=== PATIENT | male | born 1950 | race Caucasian/White ===

== ENCOUNTER 2022-05-23 11:00 | Outpatient (CLI) | payer MEDICARE, SELFPAY ==
--- NOTE | 2022-05-23 11:37 | XR_ITS ---
WS: [id number] Right arm and humerus, 2 views, AP and lateral views, 05/23/2022 Clinical Data: PAIN IN RIGHT UPPER ARM Comparison: None. Findings: No fractures or dislocations are seen. The shaft of the humerus is intact. XR/[place] [id number] Impression: Negative right arm and humerus.
== END 2022-05-23 11:01 | disposition home or self-care (01) ==
PROVIDERS: PCP Nurse Practitioner Family; Visit Provider Nurse Practitioner Family
DX: M79.621 Pain in right upper arm (principal)
CPT/HCPCS: 73060

== ENCOUNTER 2022-05-26 07:50 | Outpatient (CLI) | payer MEDICARE, SELFPAY ==
--- NOTE | 2022-05-26 08:03 | XR_ITS ---
WS: [id number] XR shoulder RT min 2V* [id number] REASON FOR EXAM: PAIN IN R UPPER ARM FINDINGS: No fracture or focal bone lesion. Moderate narrowing of the joint space with subchondral sclerosis and mild osteophytosis of the acromi oclavicular joint. Mild narrowing of the glenohumeral joint with moderate to significant subchondral sclerosis and osteo phytosis of the glenoid. Moderate subchondral sclerosis and cystic change in the biceps tuberosity. 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 Moderate rotator cuff tendon arthropathy.
== END 2022-05-26 07:51 | disposition home or self-care (01) ==
LOC: RAD 07:54
PROVIDERS: PCP Nurse Practitioner Family; Visit Provider Nurse Practitioner Family
DX: M19.011 Primary osteoarthritis, right shoulder
CPT/HCPCS: 73030

== ENCOUNTER 2024-03-11 18:22 | Emergency (ER) | payer MEDICARE, SELFPAY ==
[2024-03-11 18:36] VITALS: BP 160/89; PULSE 84; RESP 18; TEMP 36.6; O2SAT 92; BMI 25.0
--- NOTE | 2024-03-11 21:00 | W.ED.SKABFB ---
HPI - Skin/Abscess/Foreign Bdy General: Chief complaint: Skin/Abscess/Foreign Body Stated complaint: right ear pain Time Seen by Provider: 03/11/24 20:45 Source: patient Mode of arrival: ambulatory Limitations: no limitations History of Present Illness: 73-year-old male states that over the last 3 days has had some pain noted to the right side of his head and ear states he has had a rash there now for 3 days his physician thought maybe staph he has been taking antibiotics but states that it is worsening. States pain sharp in nature is much worse with palpation. Associated symptoms: Deny chills, fever(s), nausea or vomiting Related Data Previous Rx's Medication Instructions Recorded amoxicillin 500 mg tablet 500 mg PO BID #20 tabs 01/22/23 hydrocodone 5 mg-acetaminophen 325 1 tab PO Q6H PRN pain #14 tabs 03/11/24 mg tablet valacyclovir 1 gram tablet 1,000 mg PO Q8H 7 days #21 tabs 03/11/24 (Valtrex) Allergies Allergy/AdvReac Type Severity Reaction Status Date / Time meperidine [From Demerol] Allergy Severe ADR-Confusi Verified 01/22/23 12:23 on Review of Systems Const: Denies: fever(s), chills, body aches or change in appetite ENMT: Denies: throat pain or dental pain Card: Denies: chest pain Resp: Denies: dyspnea GI: Denies: abdominal pain, nausea, vomiting or diarrhea Musc: Denies: neck pain or back pain Skin/Breast: Reports: rash and skin pain Physical Exam Const: COMMON NORMALS: no acute distress, patient oriented x3 and healthy appearing HENMT: COMMON NORMALS: normocephalic and atraumatic HEAD & SCALP: normocephalic and atraumatic Eye: COMMON NORMALS: conjunctivae normal CONJUNCTIVA: Yes conjunctivae normal Neck/C-Spine: COMMON NORMALS: full ROM and supple Chest: COMMONS NORMALS: normal inspection of the chest Resp: COMMON NORMALS: normal respiratory effort Cardio: COMMON NORMALS: regular rate RATE: regular rate Extremity: COMMON NORMALS: normal to inspection and full ROM Neuro: COMMON NORMALS: patient oriented x3, moves all extremities and no focal motor deficits Psych: COMMON NORMALS: mental status grossly normal, Normal thought process present and cooperative THOUGHT PROCESS: Normal thought process present Skin: COMMON NORMALS: no wounds NARRATIVE SKIN EXAM: Rash noted to anterior posterior and to posterior scalp consistent with shingles Course Vital Signs: Vital signs: Vital Signs Temperature 97.9 F 03/11/24 18:36 Pulse Rate 84 03/11/24 18:36 Respiratory Rate 18 03/11/24 18:36 Blood Pressure 160/89 03/11/24 18:36 Pulse Oximetry 92 03/11/24 18:36 Oxygen Delivery Me thod Room Air 03/11/24 18:36 MDM - Skin/Abscess/Foreign Bdy Medicial Decision Making Patient presents here with shingles we will start on valacyclovir patient stable for discharge return if worsening. Medical Records I reviewed the patient's medical records. No radiology studies performed this visit Discharge Plan Discharge Patient Disposition: Home Clinical Impression: Shingles Condition: Stable Prescriptions: New hydrocodone-acetaminophen 5-325 mg tablet 1 tab PO Q6H PRN (Reason: pain) Qty: 14 0RF valacyclovir [Valtrex] 1 gram tablet 1,000 mg PO Q8H 7 Days Qty: 21 0RF No Action amoxicillin 500 mg tablet 500 mg PO BID Qty: 20 0RF Discharge Orders: Discharge ED (Routine); Ordered 03/11/24 Ordered By: Adam Hobbs Referrals: Karissa Humphries FNP [Primary Care Provider] - 4-7 days Discharge Diet: Advance as tolerated Discharge Activity: Resume usual activity Patient Instructions: Shingles (ED), Opioid Safety Coding Level of Care Code ED [employer] for Manuelito Davies
[2024-03-11 21:11] VITALS: BP 154/86; PULSE 81; RESP 16; O2SAT 94
== END 2024-03-11 21:11 | disposition home or self-care (01) ==
PROVIDERS: Emergency Provider Emergency Medicine; PCP Nurse Practitioner Family
DX: B02.9 Zoster without complications (principal)
CPT/HCPCS: 99283

== ENCOUNTER 2025-01-15 21:31 | Emergency (ER) | payer MEDICARE, SELFPAY ==
[2025-01-15 21:43] VITALS: BP 121/64; PULSE 71; RESP 14; TEMP 36.3; O2SAT 97; BMI 25.5
--- OUTSIDE RECORDS SUMMARY | 2025-01-15 21:44 | XMS_ITS | Encounter Summary ---
Author Organization [facility] Address [address] [place] [address] Care Team Providers Care Mail Distribution Clerk Name Role Phone Anthony Wang MD Primary Care Provider Encounter Details Date Type Department Care Team (Latest Contact Info) Description 05/19/2005 Outpatient Historical [facility] 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
--- OUTSIDE RECORDS SUMMARY | 2025-01-15 21:44 | XMS_ITS | Clinical Summary ---
Author Organization [facility] Address [address] [place] [address] Care Team Providers Care Optometry Teacher Name Role Phone Anthony Wang MD Primary Care Provider Allergies Active Allergy Reactions Criticality Noted Date Comments Meperidine Nausea and Vomiting High 12/21/2012 dizziness Medications naproxen (NAPROSYN) 500 mg tablet Take 500 mg by mouth 2 times daily. 05/23/2022 Active Hospital, Clinic, or Other Facility Administered Medication Ordered Dose Route Frequency Start Date End Date Status lidocaine (XYLOCAINE) 4 % (40 mg/mL) mucosal solution 0.2 mLIndications:Exudative age-related macular degeneration of left eye with active choroidal neovascularization (CMS/HCC) 0.2 mL See Instruct ONE TIME ONLY 5 Active povidone-iodine in balanced salt solution 0.25% eye drop 7 DropIndications:Exudati ve age-related macular degeneration of left eye with active choroidal neovascularization (CMS/HCC) 7 Drop Left Eye ONE TIME ONLY 5 Active sod borate-boric xx-TfYu-szdwg (COLLYRIUM) opthalmic solution 40 DropIndications:Exudati ve age-related macular degeneration of left eye with active choroidal neovascularization (CMS/HCC) 40 Drop See Instruct ONE TIME ONLY 5 Active tetracaine (AK-T-ODALIS) 0.5 % ophthalmic solution 5 DropIndications:Exudati ve age-related macular degeneration of left eye with active choroidal neovascularization (CMS/HCC) 5 Drop Left Eye ONE TIME ONLY 5 Active proparacaine (OPTHAINE) 0.5 % ophthalmic solution 6 DropIndications:Exudati ve age-related macular degeneration of left eye with active choroidal neovascularization (CMS/HCC) 6 Drop Left Eye ONE TIME ONLY 5 Active Active Problems Problem Noted Date Diagnosed Date Rotator cuff tear 01/03/2013 Encounters Date Type Department Care Team Description 01/10/2025 External Device Data STL ABSTRACTION Provider, Abstract 01/03/2025 Telephone [facility] Op[facility] [place] [address] [address] Nadira Metcalf MD Referral Request 12/26/2024 Abstract [facility] Ophthal[facility] [place] [address] [address] Nadira Metcalf MD from Last 3 Months Family History Relation Name Status Comments Father Mother Social History Tobacco Use Types Packs/Day Years Used Date Smoking Tobacco: Former Cigarettes Q uit: 2020 Smokeless Tobacco: Never Tobacco Cessation:Counseling Given: Not Answered Alcohol Use Standard Drinks/Week Comments Yes 0 (1 standard drink = 0.6 oz pur e alcohol) Sex and Gender Information Value Date Recorded Sex Assigned at Not on file Legal Sex Male 1:36 AM CAT BREEDER Gender Identity Not on file Sexual Orientation Not on file Last Filed Vital Signs Vital Sign Reading Time Taken Comments Blood Pressure 128/66 06/18/2022 10:34 AM CDT Pulse - - Temperature - - Respiratory Rate - - Oxygen Saturation - - Inhaled Oxygen Concentration - - Weight 80.7 kg (178 lb) 06/18/2022 10:34 AM CDT Height 172.7 cm (5' 8 ) 06/18/2022 10:34 AM CDT Body Mass Index 27.06 06/18/2022 10:34 AM CDT Plan of Treatment Upcoming Encounters Date Type Department Care Team (Late st Contact Info) Description 01/17/2025 7:50 AM CAT BREEDER Office Visit [facility] [place] [address] [address] Nadira Metcalf MD [address] [place] [address] 01/17/2025 9:00 AM CAT BREEDER Procedure visit [facility] Ophthal[facility] [place] [address] [address] Nadira Metcalf MD [address] [place] [address] Health Maintenance Due Date Last Done Comments DTAP/TDAP/TD VACCINES (1 - Tdap) 11/04/1970 COLORECTAL SCREENING 11/04/1996 Colorectal Cancer Screening 11/04/1996 FIT-DNA Q 3 years 11/04/1996 FIT/FOBT Q 1 year 11/04/1996 Flex Sig/CT Colonography Q 5 years 11/04/1996 PNEUMOCOCCAL VACCINE 50+ YEARS (1 of 1 - PCV) 11/05/19 02 ZOSTER VACCINE (1 of 2) 11/04/2001 [place]) Prev entative Visit/Annual Wellness Visit 03/16/2024 INFLUENZA VACCINE (#1) 2024 RSV VACCINE (60+ or ) (1 - 1-dose 75+ series) 11/04/2026 Medical Devices Implanted Type Area Thumb Sewer Device Identifier Shelf Expiration Date Model / Serial / Lot [place] Sut Bio Swvlck 4.75x24.5mm [id number] - Sn/A Implanted:Qty: 2 on 01/03/2013 Wildwood Left: Shoulder [employer] 09/13/2014 [id number] / N/A / [id number] Wildwood Sut Crkscrew 5.5 Ar-1928sf-2 - [id number] Implanted:Qty: 1 on 01/03/2013 Wildwood Left: Shoulder [employer] 09/03/2017 AR-1928SF- 2 / / [id number] [place]wood Sut Crkscrew 5.5 [id number]-2 - Sn/A Implanted:Qty: 1 on 01/03/2013 Wildwood Left: Shoulder [employer] 08/14/2017 AR-1928SF- 2 / N/A / [id number] Insurance AET[employer] PPO MCR Care Teams Optometry Teacher Relationship Specialty Start Date End Date Anthony Wang MD [address] [place] [address] PCP - General Family Practice 12/30/12
--- OUTSIDE RECORDS SUMMARY | 2025-01-15 21:44 | XMS_ITS | Patient Health Record ---
Author Organization [facility] Address [address] [place] [address] Support Name Relationship Address Phone BRYON ABARCA Guarantor Unknown Allergies Allergen (clinical drug ingredient) Drug/Non Drug Allergy documented on EMR Reaction Allergy Type Onset Date Status meperidine Demerol Unknown Drug Allergy Active Reason For Referral No Information Plan Of Treatment No Information Insurance Providers Payer Name Payer Address Payer Phone Subscriber Number Group Number Insured Name Patient Relationship to Insured Coverage Start Date Coverage End Date [facility] [address] [facility], [place] [phone] [id number] BRYON ABARCA Self - patient is the insured
--- OUTSIDE RECORDS SUMMARY | 2025-01-15 21:44 | XMS_ITS | Encounter Summary ---
Author Organization [facility] Address [address] [place] [address] Care Team Providers Care Cia Agent Name Role Phone Anthony Wang MD Primary Care Provider Encounter Details Date Type Department Care Team (Latest Contact Info) Description 12/21/2012 Ancillary Orders [facility] Orthopedics - Orthopedic [facility] [address] [facility] [place] [address] Lazaro Kahn MD NO ADDRESS ON FILE Shoulder pain (Primary Dx) Social History Tobacco Use Types Packs/Day Years Used Date Smoking Tobacco: Every Day Smokeless Tobacco: Never Alcohol Use Standard Drinks/Week Comments Yes 0 (1 standard drink = 0.6 oz pur e alcohol) Sex and Gender Information Value Date Recorded Sex Assigned at Not on file 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 X-rays do show evidence of a previous clavicle fracture at the midshaft. AC joint arthrosis is noted. There is no meso-acromion or meta-acromion seen. No other obvious abnormality is noted. Procedure Note Lazaro Kahn MD - 12/24/2012 Internal, external, and Y views of the left shoulder were obtained andreviewed today in the clinic. X-rays do show evidence of a previousclavicle fracture at the midshaft. AC joint arthrosis is noted. There isno meso-acromion or meta-acromion seen. No other obvious abnormality isnoted. us Lazaro Kahn MD DIAGNOSTIC IMAGING ORDERABLES Final Result documented in this encounter Visit Diagnoses Diagnosis Shoulder pain- Primary Pain in joint, shoulder region documented in this encounter Care Teams Cia Agent Relationship Specialty Start Date End Date Anthony Wang MD [address] [place] [address] [place] [address] PCP - General Family Practice 12/30/12 documented as of this encounter
--- OUTSIDE RECORDS SUMMARY | 2025-01-15 21:44 | XMS_ITS | Encounter Summary ---
Author Organization [facility] Address [address] [place] [address] Care Team Providers Care Skilled Laborer Name Role Phone Anthony Wang MD Primary Care Provider [phone] Encounter Details Date Type Department Care Team (Late Contact Info) Description 01/10/2025 External Device Data STL ABSTRACTION Provider, Abstract NO ADDRESS ON FILE Social History Tobacco Use Types Packs/Day Years Used Date Smoking Tobacco: Former Cigarettes Q uit: 2020 Smokeless Tobacco: Never Alcohol Use Standard Drinks/Week Comments Yes 0 (1 standard drink = 0.6 oz pur e alcohol) Sex and Gender Information Value Date Recorded Sex Assigned at Not on file Legal Sex Male 1:36 AM INPATIENT NURSING AIDE Gender Identity Not on file Sexual Orientation Not on file documented as of this encounter Plan of Treatment Upcoming Encounters Date Type Department Care Team (Late Contact Info) Description 01/17/2025 7:50 AM INPATIENT NURSING AIDE Office Visit [facility] Ophthalmology [place] [address] [address] Nadira Metcalf MD [address] [place] [address] 01/17/2025 9:00 AM INPATIENT NURSING AIDE Procedure visit [facility] Ophthal[facility] [place] [address] [address] Nadira Metcalf MD [address] [place] [address] documented as of this encounter Visit Diagnoses Not on filedocumented in this encounter Care Teams Skilled Laborer Relationship Specialty Start Date End Date Anthony Wang MD [address] [place] [address] [place] [address] PCP - General Family Practice 12/30/12 documented as of this encounter
--- OUTSIDE RECORDS SUMMARY | 2025-01-15 21:44 | XMS_ITS | Clinical Summary ---
Author Organization [facility] Address [address] Attn: Epic Prelude ADT KASANDRA VANEGAS [address] Care Team Providers Care Operators Teacher Name Role Phone Anthony Wang MD Primary Care Provider Allergies Active Allergy Reactions Criticality Noted Date Comments Meperidine Nausea and Vomiting High 12/21/2012 dizziness Medications HYDROcodone-acet aminophen (NORCO) 10-325 mg Tablet Take 1 Tab by mouth every 4 hours as needed for Pain, Moderate. 60 Tab 0 01/03/2013 Active IBUPROFEN ORAL Take by mouth. 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 Gender Identity Not on file Sexual Orientation Not on file Occupation Industry Job Start Date Job End Date Not on file Not on file Not on file Not on file Last Filed Vital Signs Vital Sign Reading Time Taken Comments Blood Pressure 140/69 06/29/2013 9:40 AM CDT Pulse 61 06/29/2013 9:40 AM CDT Temperature 35.5 C (95.9 F) 01/03/2013 4:30 PM CDT Respiratory Rate 16 06/29/2013 9:40 AM CDT Oxygen Saturation 93% 01/03/2013 4:30 PM CDT Inhaled Oxygen Concentration - - Weight 67.1 kg (148 lb) 06/29/2013 9:40 AM CDT Height 172.7 cm (5' 8 ) 06/29/2013 9:40 AM CDT Body Mass Index 22.5 06/29/2013 9:40 AM CDT Plan of Treatment Health Maintenance Due Date Last Done Comments DTAP/TDAP/TD VACCINES (1 - Tdap) 11/04/1970 PNEUMOCOCCAL VACCINE 50+ YEARS (1 of 2 - PCV) 11/04/18 71 COLORECTAL SCREENING 11/04/1996 Colorectal Cancer Screening 11/04/1996 FIT-DNA Q 3 years 11/04/1996 FIT/FOBT Q 1 year 11/04/1996 Flex Sig/CT Colonography Q 5 years 11/04/1996 ZOSTER VACCINE (1 of 2) 11/04/2001 INFLUENZA VACCINE (#1) 2024 RSV VACCINE (60+ or ) (1 - 1-dose 75+ series) 11/04/2026 Medical Devices Implanted Type Area Oil Spraying Machine Operator Device Identifier Shelf Expiration Date Model / Serial / Lot [place] Sut Crkscrew 5.5 Ar-1928sf-2 - [id number] Implanted:Qty: 1 on 01/03/2013 at [facility] [place] Left: Shoulder [employer] 09/03/2017 AR-1928SF- 2 / / [id number] [place] Sut Crkscrew 5.5 Ar-1928sf-2 - Sn/A Implanted:Qty: 1 on 01/03/2013 at [facility] [place] Left: Shoulder [employer] 08/14/2017 AR-1928SF- 2 / N/A / [id number] [place] Sut Bio Swvlck 4.75x24.5mm [id number] - Sn/A Implanted:Qty: 2 on 01/03/2013 at [facility] [place] Left: Shoulder [employer] 09/13/2014 AR-2324BCM / N/A / [id number] Insurance Access Systems [employer] Advance Directives For more information, please contact: [phone] * Full Code (Latest Code Status on File) Date Activated Date Inactivated Comments 01/03/2013 9:53 AM 01/03/2013 7:13 PM * Full Code Date Activated Date Inactivated Comments 01/03/2013 9:04 AM 01/03/2013 9:53 AM Care Teams Operators Teacher Relationship Specialty Start Date End Date Anthony Wang MD [facility] [address] [place] [address] [place] [address] PCP - General Family Practice 12/30/12
[2025-01-15 21:47] VITALS: BP 121/64; PULSE 71; RESP 14; TEMP 36.3; O2SAT 97
--- NOTE | 2025-01-15 21:47 | ECG_ITS ---
[facility] Test Date: 2025-01-15 Pat Name: Ruben John Department: Room: Gender: Male Bisque Finisher: : 1950 Requested By: Dong Pedro Order Number: [id number] Can MD: Eliecer Vasquez M.D. Measurements Intervals [place] Rate: 71 P: 24 LA: 179 QRS: 27 QRSD: 98 T: 51 QT: 381 QTc: 414 Interpretive Statements Multifocal atrial rhythm INCOMPLETE RIGHT BUNDLE BRANCH BLOCK [90+ ms QRS DURATION, TERMINAL R IN V1/V2, 40+ ms S IN I/aVL/V4/V5/V6] ABNORMAL RHYTHM ECG No previous ECG available for comparison Electronically Signed On 01-17-2025 22:15:42 GRAIN TRIMMER by Eliecer Vasquez M.D. [email or web address]
[2025-01-15 22:22] VITALS: BP 147/78; PULSE 71; O2SAT 96
--- NOTE | 2025-01-15 22:30 | ECG_ITS ---
[facility] Date: 2025-01-15 Pat Name: Ruben John Department: Room: Gender: Male Set Up Operator Tool: : 1950 Requested By: Morales Bender Order Number: [id number] Can MD: Eliecer Vasquez M.D. Measurements Intervals [place] Rate: 75 P: 99 IA: 173 QRS: 20 QRSD: 88 T: 47 QT: 371 QTc: 415 Interpretive Statements SINUS RHYTHM WITH MARKED SINUS ARRHYTHMIA POSSIBLE RIGHT VENTRICULAR CONDUCTION DELAY [RSR (QR) IN V1/V2] MODERATE ST DEPRESSION [0.05+ mV ST DEPRESSION] No previous ECG available for comparison Electronically Signed On 01-17-2025 22:16:02 YARN MERCERIZER OPERATOR by Eliecer Vasquez M.D. [id number]
--- NOTE | 2025-01-15 22:31 | CTR_ITS ---
PROCEDURE INFORMATION: Exam: CT Head Without Contrast Exam date and time: 01/15/2025 11:39 PM Age: 74 years old Clinical indication: Dizziness and syncope and collapse; Syncopal episode. C/O dizziness TECHNIQUE: Imaging protocol: Computed tomography of the head without contrast. Radiation optimization: All CT scans at this facility use at least one of these dose optimization techniques: automated exposure control; mA and/or kV adjustment per patient size (includes targeted exams where dose is matched to clinical indication); or iterative reconstruction. COMPARISON: No relevant prior studies available. RADIATION DOSE METRICS: Total DLP (mGy-cm): 1192.71 FINDINGS: Brain: Basal cisterns are patent. No hemorrhage, mass effect or extra-axial collection. Cortical volume loss commensurate with the patient's age. Lee-white matter differentiation is well-preserved. No acute intracranial abnormality. Hypoattenuating foci in the subcortical, deep and periventricular white matter which is nonspecific but can be seen in chronic microangiopathic ischemic changes. Cerebral ventricles: No ventriculomegaly. Paranasal sinuses: Visualized sinuses are unremarkable. No fluid levels. Mastoid air cells: Visualized mastoid air cells are well aerated. Bones: Unremarkable. No acute fracture. Soft tissues: Unremarkable. Vasculature: Calcifications of the carotid siphon. CT/CT head wo con* [id number] IMPRESSION: 1. No acute intracranial abnormality. 2. Hypoattenuating foci in the subcortical, deep and periventricular white matter which is nonspecific but can be seen in chronic microangiopathic ischemic changes.
--- NOTE | 2025-01-15 22:31 | XRR_ITS ---
PROCEDURE INFORMATION: Exam: XR Chest Exam date and time: 01/15/2025 10:33 PM Age: 74 years old Clinical indication: Other: Syncope; Syncopal episode TECHNIQUE: Imaging protocol: Radiologic exam of the chest. Views: 1 view. COMPARISON: CR XR shoulder RT min 2V* [id number] 05/26/2022 8:25 AM FINDINGS: Lungs: Unremarkable. No consolidation. Pleural spaces: Possible small left pleural effusion. Heart/Mediastinum: Enlarged cardiac silhouette. Bones/joints: No acute abnormality. XR/XR chest 1V portable [id number] IMPRESSION: Possible small left pleural effusion.
[2025-01-15 23:07] VITALS: BP 113/63; BP 115/64; BP 125/64; PULSE 70; PULSE 73; PULSE 85
[2025-01-15 23:09] VITALS: BP 115/64; PULSE 81; O2SAT 95
[2025-01-15 23:09] LABS: Hematocrit 40.7 % (37-53); Hemoglobin 13.70 g/dL (11.27-16.99); Mean Corpuscular HGB Conc 33.7 g/dL (30-55); Mean Corpuscular Hemoglobin 30.6 pg (27-33); Mean Corpuscular Volume 91.1 fl (82-101); Nucleated Red Blood Cells % 0 %; Platelet Count 281 10^3/cmm (157-399); Red Blood Count 4.47 10^6/uL (3.85-5.65); White Blood Count 15.20 10^3/uL (3.29-11.43)
--- NOTE | 2025-01-15 23:09 | ED_ITS ---
Documented by User: [email or web address] Antonio 01/16/25 00:54 HPI - Dizziness 2 General: Chief Complaint: Dizziness Stated Complaint: Weakness Time Seen by Provider: 01/15/25 22:21 Source: patient Mode of arrival: ambulatory Limitations: no limitations History of Present Illness: HPI Narrative: Patient is a 74-year-old male with no pertinent past medical history who reports to the emergency department due to syncopal episodes that occurred tonight while at home. States that around 1930 this evening, he was in the kitchen when he had to pull himself to the floor due to the sudden onset of weakness, diaphoresis, nausea, and lightheadedness. States that he had to pull himself to the bathroom where his was taking a bath, and laid on the cold tile which did improve his symptoms. He has been ambulatory since this incident occurred, states that he still feels weak but the rest of his symptoms have resolved. He has never had issues like this in the past, denies any issues with blood pressure and states that he has never seen a regular provider. Does not take any regular medications. He does not report any chest pain or shortness of breath. No headache, visual changes, or focal neurological deficits. Vitals are stable at this time. Denies any injuries with the syncopal episode. MD elicited complaint: lightheadedness Onset (ago): hour(s) Timing: sudden onset Severity: moderate Description: lightheadedness History of similar symptoms: No Associated symptoms: Reports diaphoresis, malaise, nausea and syncope; Denies chest pain, chills, headache(s), palpitations or vomiting Associated neuro symptoms: Deny numbness in extremities Related Data Previous Rx's ?Medication ?Instructions ?Recorded amoxicillin 500 mg tablet 500 mg PO BID #20 tabs 01/22 hydrocodone 5 mg-acetaminophen 325 1 tab PO Q6H PRN pa in #14 tabs 03/11/ mg tablet Allergies Allergy/AdvReac Type Severity Reaction Status Date / Time meperidine (From Demerol) Allergy Severe ADR-Confusi Verified 01/22/23 12:23 on Review of Systems 2 General: Reports: 10 or more systems reviewed and unremarkable except in HPI and below Const: Reports: malaise and diaphoresis; Denies: fever(s) or chills Eyes: Denies: change in vision ENMT: Denies: throat pain, ear or mastoid pain or nasal discharge Card: Reports: lightheadedness and syncope; Denies: chest pain, palpitations or swelling of feet/ankles Resp: Denies: dyspnea, productive cough or wheezing GI: Reports: nausea; Denies: abdominal pain, vomiting, diarrhea or constipation : Denies: flank pain, difficulty urinating, dysuria or urinary frequency Musc: Denies: neck pain, back pain or joint pain Skin/Breast: Denies: rash Neuro: Denies: headache(s), numbness in extremities or weakness in extremities Physical Exam 2 Const: COMMON NORMALS: no acute distress, patient oriented x3 and no limitations GENERAL APPEARANCE: cooperative, comfortable and well developed ORIENTATION/CONSCIOUSNESS: Yes awake, Yes oriented to person, Yes oriented to place and Yes oriented to time HENMT: COMMON NORMALS: normocephalic, atraumatic and hearing grossly normal bilaterally HEAD & SCALP: normocephalic and atraumatic Eye: COMMON NORMALS: Equal, round and reactive pupils present, EOMs intact bilaterally and conjunctivae normal CONJUNCTIVA: Yes conjunctivae normal P UPIL: Yes Equal, round and reactive pupils present Resp: COMMON NORMALS: normal respiratory effort, No retractions, No use of accessory muscles and clear to auscultation bilaterally AUSCULTATION: clear to auscultation bilaterally Cardio: COMMON NORMALS: regular rate, regular rhythm, No clicks present (Cardio), No murmurs present (Cardio) and No rub (Cardio) RATE: regular rate RHYTHM: regular rhythm GI: COMMON NORMALS: Normal to inspection, nondistended, normoactive bowel sounds present, Soft to palpation and non-tender AUSCULTATION: Yes normoactive bowel sounds PALPATION: Yes Soft to palpation RECTAL EXAM: Yes deferred Extremity: COMMON NORMALS: normal to inspection, full ROM and capillary refill normal Neuro: COMMON NORMALS: patient oriented x3, CN's II-XII intact bilaterally, moves all extremities, no focal motor deficits and no sensory deficits noted SENSORIUM/ORIENTATION: Yes oriented to person, Yes oriented to place and Yes oriented to time Skin: COMMON NORMALS: no rashes or lesions noted GENERAL SKIN EXAM: no rashes or lesions noted Course 2 Vital Signs: Vital signs: Vital Signs Temperature 97.3 F L 01/15/25 21:47 Pulse Rate 81 01/15/25 23:09 Respiratory Rate 14 01/15/25 21:47 Blood Pressure 115/64 01/15/25 23:09 Pulse Oximetry 95 01/15/25 23:09 Oxygen Delivery Me thod Room Air 01/15/25 23:09 MDM - Dizziness Medical Decision Making This patient had a syncopal episode about an hour prehospital, he felt nauseous, diaphoretic, and lightheaded which caused him to himself to the floor, no chest pain or shortness of breath with this and he did not suffer any injuries. No pertinent past medical history states he does not see doctors. Stating he is just feeling weak at time of exam, no other symptoms. After IV fluids he notes that he is symptom-free. Physical exam is unremarkable. EKG showing supraventricular premature complexes no ST segment elevation changes or heart block. Chest x-ray with small left pleural effusion possible, however no adventitious lung sounds on exam. Head CT negative. Baseline troponin is 19, delta is negative. Rest of his lab work is unremarkable does have mild hypophosphatemia, thought to be nonspecific in this case. Less likely that this episode today is cardiac related though with his EKG and history reported he will be referred to cardiology for further evaluation. The rest of his workup is reassuring. He will be allowed discharge home, instructions to return are discussed thoroughly and he knows to return with any new or worsening. Symptom free at discharge. Discussed case with Dr. Negrete. Lab Data 01/15/25 22:57 01/15/25 22:57 Radiology Impressions Chest X-Ray 01/15/25 22:31 IMPRESSION: Possible small left pleural effusion. Head CT 01/15/25 22:31 IMPRESSION: 1. No acute intracranial abnormality. 2. Hypoattenuating foci in the subcortical, deep and periventricular white matter which is nonspecific but can be seen in chronic microangiopathic ischemic changes. Laboratory Results WBC 15.20 10^3/uL (3.29-11.43) H 01/15/25 22:57 RBC 4.47 10^6/uL (3.85-5.65) 01/15/25 22:57 Hgb 13.70 g/dL (11.27-16.99) 01/15/25 22:57 Hct 40.7 % (37-53) 01/15/25 22:57 MCV 91.1 fl (82-101) 01/15/25 22:57 MCH 30.6 pg (27-33) 01/15/25 22:57 MCHC 33.7 g/dL (30-55) 01/15/25 22:57 RDW 12.8 % (12.1-15.1) 01/15/25 22:57 Plt Count 281 10^3/cmm (157-399) 01/15/25 22:57 MPV 9.6 fL (7.4-10.4) 01/15/25 22:57 Neut % (Auto) 84.5 % 01/15/25 22:57 Lymph % (Auto) 7.4 % 01/15/25 22:57 Summers % (Auto) 7.1 % 01/15/25 22:57 Eos % (Auto) 0.2 % 01/15/25 22:57 Baso % (Auto) 0.3 % 01/15/25 22:57 Neut # (Auto) 12.84 10^3/uL (1.8-7.7) H 01/15/25 22:57 Lymph # (Auto) 1.1 10^3/uL (0.8-4.8) 01/15/25 22:57 Summers # (Auto) 1.1 10^3/uL (0.2-0.9) H 01/15/25 22:57 Eos # (Auto) 0.0 10^3/uL (0.0-0.8) 01/15/25 22:57 Baso # (Auto) 0.1 10^3/uL (0.0-0.1) 01/15/25 22:57 Nucleated RBC % (auto) 0 % 01/15/25 22:57 Nucleated RBCs # 0.0 /100WBC 01/15/25 22:57 Sodium 142 mmol/L (136-145) 01/15/25 22:57 Potassium 5.0 mmol/L (3.5-5.1) 01/15/25 22:57 Chloride 110 mmol/L (98-107) H 01/15/25 22:57 Carbon Dioxide 22 mmol/L (22-29) 01/15/25 22:57 Anion Gap 15.0 (5-19) 01/15/25 22:57 BUN 32 mg/dL (8-23) H 01/15/25 22:57 Creatinine 0.9 mg/dL (0.7-1.2) 01/15/25 22:57 GFR Calculation Not Reportable 01/15/25 22:57 Glucose 123 mg/dL (65-115) H 01/15/25 22:57 Calculated Osmolality 302 mOsm/kg (285-295) H 01/15/25 22:57 Calcium 9.1 mg/dL (8.5-10.5) 01/15/25 22:57 Phosphorus 1.6 mg/dL (2.5-4.5) L 01/15/25 22:57 Magnesium 2.3 mg/dL (1.7-2.3) 01/15/25 22:57 Total Bilirubin 0.3 mg/dL (0.15-1.2) 01/15/25 22:57 AST 24 U/L (0-40) 01/15/25 22:57 ALT 33 U/L (0-41) 01/15/25 22:57 Alkaline Phosphatase 74 U/L (40-130) 01/15/25 22:57 Troponin T Baseline 19 ng/L (0-15) H 01/15/25 22:57 Troponin T 120 Minute 20.36 ng/L (0-15) H 01/16/25 00:40 Delta Troponin T 1.36 ABS# (0-10) 01/16/25 00:40 Total Protein 5.9 g/dL (6.6-8.7) L 01/15/25 22:57 Albumin 3.9 g/dL (3.5-5.2) 01/15/25 22:57 Globulin 2.0 g/dL (1.3-4.6) 01/15/25 22:57 All radiology interpretation(s) finalized by discharge Discharge Plan Discharge Patient Disposition: Home Clinical Impression: Dehydration Syncope Qualifiers: Syncope type: unspecified Qualified Code(s): R55 - Syncope and collapse Condition: Stable Prescriptions: No Action amoxicillin 500 mg tablet 500 mg PO BID Qty: 20 0RF hydrocodone-acetaminophen 5-325 mg tablet 1 tab PO Q6H PRN (Reason: pain) Qty: 14 0RF Discharge Orders: Discharge ED (Routine); Ordered 01/16/25 Ordered By: Morales Park Patient Instructions: Patient Portal & Josie Instructions Activity Restrictions/Additional Instructions: Syncope and Dehydration Discharge You have been diagnosed with fainting (syncope) and dehydration. Your tests in the hospital did not show any serious problems, but you will be seeing a heart doctor (distribution center assistant) soon for further evaluation. What to Do at Home: - Stay well hydrated: Drink plenty of fluids throughout the day. Aim for at least 2 liters (about 8 cups) of water or other non-caffeinated, non-alcoholic drinks daily, unless your doctor has told you to limit fluids for another reason. - Increase salt intake: Unless you have high blood pressure, heart failure, or kidney problems, add a bit more salt to your food or choose drinks with added sodium (like certain sports drinks) to help your body hold onto fluids and prevent dehydration. - Avoid triggers: Try to avoid standing up too quickly, hot environments, or long periods of standing, as these can make you feel faint. - Medication review: If you take medicines that can lower your blood pressure (such as water pills/diuretics or blood pressure medications), talk to your doctor before making any changes. Do not stop any medication on your own. - Recognize warning signs: If you feel dizzy, lightheaded, or like you might faint, sit or lie down right away. If possible, raise your legs. Tensing your leg and arm muscles (like crossing your legs and squeezing them or making fists) can help prevent fainting. - Safety: Do not drive or operate heavy machinery until you have been cleared by your doctor, as fainting can be dangerous in these situations. - Follow-up: Keep your appointment with the distribution center assistant for further evaluation. When to Seek Immediate Help: - Chest pain, shortness of breath, or palpitations - Fainting with injury or while sitting/lying down - Repeated episodes of fainting - Confusion, weakness, or trouble speaking If any of these occur, call 911 or go to the nearest emergency room. If you have any questions or concerns, contact your healthcare provider. Print Language: Thai Coding Level of Care Code ED Ladderman for Cortesg Fwd Documented by User: Dong NegreteDO 01/16/25 01:52 HPI - Dizziness 2 General: Chief Complaint: Dizziness Stated Complaint: Weakness Time Seen by Provider: 01/15/25 22:21 Related Data Previous Rx's ?Medication ?Instructions ?Recorded amoxicillin 500 mg tablet 500 mg PO BID #20 tabs 01/22 hydrocodone 5 mg-acetaminophen 325 1 tab PO Q6H PRN pa in #14 tabs 03/11/24 mg tablet Allergies Allergy/AdvReac Type Severity Reaction Status Date / Time meperidine (From Demerol) Allergy Severe ADR-Confusi Verified 01/22/23 12:23 on Course 2 Vital Signs: Vital signs: Vital Signs Temperature 97.3 F L 01/15/25 21:47 Pulse Rate 81 01/15/25 23:09 Respiratory Rate 14 01/15/25 21:47 Blood Pressure 115/64 01/15/25 23:09 Pulse Oximetry 95 01/15/25 23:09 Oxygen Delivery Me thod Room Air 01/15/25 23:09 MDM - Dizziness Medical Decision Making This patient had a syncopal episode about an hour prehospital, he felt nauseous, diaphoretic, and lightheaded which caused him to himself to the floor, no chest pain or shortness of breath with this and he did not suffer any injuries. No pertinent past medical history states he does not see doctors. Stating he is just feeling weak at time of exam, no other symptoms. After IV fluids he notes that he is symptom-free. Physical exam is unremarkable. EKG showing supraventricular premature complexes no ST segment elevation changes or heart block. Chest x-ray with small left pleural effusion possible, however no adventitious lung sounds on exam. Head CT negative. Baseline troponin is 19, delta is negative. Rest of his lab work is unremarkable does have mild hypophosphatemia, thought to be nonspecific in this case. Less likely that this episode today is cardiac related though with his EKG and history reported he will be referred to cardiology for further evaluation. The rest of his workup is reassuring. He will be allowed discharge home, instructions to return are discussed thoroughly and he knows to return with any new or worsening. Symptom free at discharge. Discussed case with Dr. Negrete. This patient was originally seen by Mr. Vivian PA-C. I agree with his history, evaluation, and treatment. His delta Trope is 1.36. He is stable for discharge at this point. As above. Lab Data 01/15/25 22:57 01/15/25 22:57 Radiology Impressions Chest X-Ray 01/15/25:31 IMPRESSION: Possible small left pleural effusion. Head CT 01/15/25 22: IMPRESSION: 1. No acute intracranial abnormality. 2. Hypoattenuating foci in the subcortical, deep and periventricular white matter which is nonspecific but can be seen in chronic microangiopathic ischemic changes. Laboratory Results WBC 15.20 10^3/uL (3.29-11.43) H 01/15/25 22:57 RBC 4.47 10^6/uL (3.85-5.65) 01/15/25 22:57 Hgb 13.70 g/dL (11.27-16.99) 01/15/25 22:57 Hct 40.7 % (37-53) 01/15/25 22:57 MCV 91.1 fl (82-101) 01/15/25 22:57 MCH 30.6 pg (27-33) 01/15/25 22:57 MCHC 33.7 g/dL (30-55) 01/15/25 22:57 RDW 12.8 % (12.1-15.1) 01/15/25 22:57 Plt Count 281 10^3/cmm (157-399) 01/15/25 22:57 MPV 9.6 fL (7.4-10.4) 01/15/25 22:57 Neut % (Auto) 84.5 % 01/15/25 22:57 Lymph % (Auto) 7.4 % 01/15/25 22:57 Summers % (Auto) 7.1 % 01/15/25 22:57 Eos % (Auto) 0.2 % 01/15/25 22:57 Baso % (Auto) 0.3 % 01/15/25 22:57 Neut # (Auto) 12.84 10^3/uL (1.8-7.7) H 01/15/25 22:57 Lymph # (Auto) 1.1 10^3/uL (0.8-4.8) 01/15/25 22:57 Summers # (Auto) 1.1 10^3/uL (0.2-0.9) H 01/15/25 22:57 Eos # (Auto) 0.0 10^3/uL (0.0-0.8) 01/15/25 22:57 Baso # (Auto) 0.1 10^3/uL (0.0-0.1) 01/15/25 22:57 Nucleated RBC % (auto) 0 % 01/15/25 22:57 Nucleated RBCs # 0.0 /100WBC 01/15/25 22:57 Sodium 142 mmol/L (136-145) 01/15/25 22:57 Potassium 5.0 mmol/L (3.5-5.1) 01/15/25 22:57 Chloride 110 mmol/L (98-107) H 01/15/25 22:57 Carbon Dioxide 22 mmol/L (22-29) 01/15/25 22:57 Anion Gap 15.0 (5-19) 01/15/25 22:57 BUN 32 mg/dL (8-23) H 01/15/25 22:57 Creatinine 0.9 mg/dL (0.7-1.2) 01/15/25 22:57 GFR Calculation Not Reportable 01/15/25 22:57 Glucose 123 mg/dL (65-115) H 01/15/25 22:57 Calculated Osmolality 302 mOsm/kg (285-295) H 01/15/25 22:57 Calcium 9.1 mg/dL (8.5-10.5) 01/15/25 22:57 Phosphorus 1.6 mg/dL (2.5-4.5) L 01/15/25 22:57 Magnesium 2.3 mg/dL (1.7-2.3) 01/15/25 22:57 Total Bilirubin 0.3 mg/dL (0.15-1.2) 01/15/25 22:57 AST 24 U/L (0-40) 01/15/25 22:57 ALT 33 U/L (0-41) 01/15/25 22:57 Alkaline Phosphatase 74 U/L (40-130) 01/15/25 22:57 Troponin T Baseline 19 ng/L (0-15) H 01/15/25 22:57 Troponin T 120 Minute 20.36 ng/L (0-15) H 01/16/25 00:40 Delta Troponin T 1.36 ABS# (0-10) 01/16/25 00:40 Total Protein 5.9 g/dL (6.6-8.7) L 01/15/25 22:57 Albumin 3.9 g/dL (3.5-5.2) 01/15/25 22:57 Globulin 2.0 g/dL (1.3-4.6) 01/15/25 22:57 Discharge Plan Discharge Patient Disposition: Home Clinical Impression: Dehydration Syncope Qualifiers: Syncope type: unspecified Qualified Code(s): R55 - Syncope and collapse Condition: Stable Prescriptions: No Action amoxicillin 500 mg tablet 500 mg PO BID Qty: 20 0RF hydrocodone-acetaminophen 5-325 mg tablet 1 tab PO Q6H PRN (Reason: pain) Qty: 14 0RF Discharge Orders: Discharge ED (Routine); Ordered 01/16/25 Ordered By: Morales Park Patient Instructions: Patient Portal & Josie Instructions Activity Restrictions/Additional Instructions: Syncope and Dehydration Discharge You have been diagnosed with fainting (syncope) and dehydration. Your tests in the hospital did not show any serious problems, but you will be seeing a heart doctor (distribution center assistant) soon for further evaluation. What to Do at Home: - Stay well hydrated: Drink plenty of fluids throughout the day. Aim for at least 2 liters (about 8 cups) of water or other non-caffeinated, non-alcoholic drinks daily, unless your doctor has told you to limit fluids for another reason. - Increase salt intake: Unless you have high blood pressure, heart failure, or kidney problems, add a bit more salt to your food or choose drinks with added sodium (like certain sports drinks) to help your body hold onto fluids and prevent dehydration. - Avoid triggers: Try to avoid standing up too quickly, hot environments, or long periods of standing, as these can make you feel faint. - Medication review: If you take medicines that can lower your blood pressure (such as water pills/diuretics or blood pressure medications), talk to your doctor before making any changes. Do not stop any medication on your own. - Recognize warning signs: If you feel dizzy, lightheaded, or like you might faint, sit or lie down right away. If possible, raise your legs. Tensing your leg and arm muscles (like crossing your legs and squeezing them or making fists) can help prevent fainting. - Safety: Do not drive or operate heavy machinery until you have been cleared by your doctor, as fainting can be dangerous in these situations. - Follow-up: Keep your appointment with the distribution center assistant for further evaluation. When to Seek Immediate Help: - Chest pain, shortness of breath, or palpitations - Fainting with injury or while sitting/lying down - Repeated episodes of fainting - Confusion, weakness, or trouble speaking If any of these occur, call 911 or go to the nearest emergency room. If you have any questions or concerns, contact your healthcare provider. Print Language: Thai Coding Level of Care Code ED Ladderman for Manuelito Davies
[2025-01-15 23:23] LABS: Troponin(5th) Baseline 19 ng/L (0-15)
[2025-01-15 23:44] LABS: Alanine Aminotransferase 33 U/L (0-41); Albumin Level 3.9 g/dL (3.5-5.2); Alkaline Phosphatase 74 U/L (40-130); Anion Gap 15.0 (5-19); Aspartate Amino Transferase 24 U/L (0-40); Blood Urea Nitrogen 32 mg/dL (8-23); Calcium 9.1 mg/dL (8.5-10.5); Carbon Dioxide 22 mmol/L (22-29); Chloride 110 mmol/L (98-107); Creatinine Clr Calc Pharmacy 73.9498; Globulin 2.0 g/dL (1.3-4.6); Glucose 123 mg/dL (65-115); Magnesium 2.3 mg/dL (1.7-2.3); Osmolality Calculated 302 mOsm/kg (285-295); Potassium 5.0 mmol/L (3.5-5.1); Sodium 142 mmol/L (136-145); Total Protein 5.9 g/dL (6.6-8.7)
--- NOTE | 2025-01-16 00:30 | ECG_ITS ---
[email or web address] Date: 2025-01-16 Pat Name: Ruben John Department: Room: Gender: Male Creative Services Director: : 1950 Requested By: Morales Bender Order Number: [id number] Can MD: Eliecer Vasquez M.D. Measurements Intervals [place] Rate: 54 P: 21 KS: 175 QRS: 24 QRSD: 94 T: 43 QT: 438 QTc: 418 Interpretive Statements possibly atrial fibrillation with slow ventricular response INCOMPLETE RIGHT BUNDLE BRANCH BLOCK [90+ ms QRS DURATION, TERMINAL R IN V1/V2, 40+ ms S IN I/aVL/V4/V5/V6] NONSPECIFIC T-WAVE ABNORMALITY Compared to ECG 01/15/2025 22:36:38 T-wave abnormality now present Sinus rhythm no longer present Electronically Signed On 01-17-2025 22:34:28 LEAD PRINTER by Eliecer Vasquez M.D. [email or web address]
[2025-01-16 01:19] LABS: Troponin 5 2HR 20.36 ng/L (0-15); Troponin 5 2HR Delta 1.36 ABS# (0-10)
--- NOTE | 2025-01-16 17:32 | DCPLANNER ---
messaged heart care for er f/u
== END 2025-01-16 01:15 | disposition home or self-care (01) ==
PROVIDERS: Emergency Provider Physician Assistant
DX: E86.0 Dehydration (principal); R55 Syncope and collapse
CPT/HCPCS: 36415; 70450; 71045; 80053; 83735; 84100; 84484; 85025; 93005; 96360; 99285; J7030